=== PATIENT | male | born 1945 | race Caucasian/White ===

== ENCOUNTER 2017-10-29 11:00 | Inpatient (IN) | payer OTHER ==
[~2017-10-29] VITALS: Ht 175.3 cm; Wt 95.5 kg
[~2017-10-29 11:00] MED LIST: CLONAZEPAM1 MG PO; DOCUSATE SODIU100 MG PO; PERCOCET 5/3251 TAB PO; TAMS0.4C PO
[2017-11-03] MEDS ORDERED: PERCOCET 5-3251 EACH PO (12:37)
[2017-11-03] MEDS ORDERED: CIPROFLOXACIN750 MG PO (12:37)
[2017-11-03] MEDS ORDERED: GABAPENTIN800 MG PO (12:37)
[2017-11-03] MEDS ORDERED: DOCUSATE SODIU100 MG PO (12:37)
[2017-11-03] MEDS ORDERED: CLONAZEPAM1 MG PO (12:37)
== END 2017-11-03 17:56 | DRG 460 ==
LOC: EDSTATUS 11:00 → ADM 11:00 → PED 11-02 05:54 → O/R 11-02 05:54 → SURH 11-02 11:00 → PED 11-02 17:55
PROVIDERS: Orthopaedic Surgery Orthopaedic Surgery of the Spine
PROC: 0SG30AJ Fusion of Lumbosacral Joint with Interbody Fusion Device, Posterior Approach, Anterior Column, Open Approach (ICD-10-PCS; 2017-11-02)
PROC: 07DS3ZZ Extraction of Vertebral Bone Marrow, Percutaneous Approach (ICD-10-PCS; 2017-11-02)
PROC: 00NY0ZZ Release Lumbar Spinal Cord, Open Approach (ICD-10-PCS; principal; 2017-11-02 13:00)
PROC: 0ST40ZZ Resection of Lumbosacral Disc, Open Approach (ICD-10-PCS; 2017-11-02 13:00)
DX: M47.27 Other spondylosis with radiculopathy, lumbosacral region (principal); M47.12 Other spondylosis with myelopathy, cervical region; M48.07 Spinal stenosis, lumbosacral region; I10 Essential (primary) hypertension; M51.17 Intervertebral disc disorders with radiculopathy, lumbosacral region